=== PATIENT | male | born 1965 | race Caucasian/White ===

== ENCOUNTER → 2021-12-30 | Outpatient (CLI) | payer BC ==
--- NOTE | 2021-12-30 11:11 | RAD ---
EXAM: Chest, 2 views. HISTORY: Cough. COMPARISON: None. FINDINGS: 2 views of the chest are obtained. There is no infiltrate, pleural effusion or pneumothorax . The heart is normal in size. IMPRESSION: No acute pulmonary finding. Electronically signed by: Perla Culver MD (12/30/2021 11:08 AM) [id number]
== END ==
LOC: RAD 10:55
PROVIDERS: ATTEND Registered Nurse
DX: R05.9 Cough, unspecified (principal)
CPT/HCPCS: 71046